=== PATIENT | female | born 1995 | race Caucasian/White ===

== ENCOUNTER → 2019-04-02 13:04 | Outpatient (BNVA) | payer OTHER, SELFPAY | PROVIDERS: Family Provider Family Medicine; PCP Family Medicine; Referring Provider Family Medicine; Visit Provider Family Medicine | DX: Z01.89 Encounter for other specified special examinations (principal) ==

== ENCOUNTER 2022-09-25 11:01 | Outpatient (CLI) | payer BC, SELFPAY ==
[2022-09-25 11:26] VITALS: BP 162/106; PULSE 93; TEMP 35.7
[2022-09-25 11:42] VITALS: BP 133/75; PULSE 92
[2022-09-25 11:54] VITALS: RESP 15
== END 2022-09-25 12:08 | disposition home or self-care (01) ==
LOC: OPOB 11:05 → OBGYN 11:10
PROVIDERS: PCP Family Medicine
DX: O26.899 Other specified pregnancy related conditions, unspecified trimester (principal); R10.2 Pelvic and perineal pain; Z3A.00 Weeks of gestation of pregnancy not specified
CPT/HCPCS: 59025; 99211